=== PATIENT | female | born 1950 ===

== ENCOUNTER 2017-09-08 01:23 | Inpatient (IN) | payer OTHER ==
--- NOTE | 2017-09-08 01:52 | ED PDOC ---
Arrival/HPI - General Time Seen by Provider: 09/08/17 01:43 Historian: Patient, Family - History of Present Illness Narrative History of Present Illness (Text): 09/08/17 01:49 Alecia Mcdaniels is a 66 year old female, whose past medical history includes GERD , PUD, and SBO, who presented to the Emergency department accompanied by relative complaining of abdominal pain. Patient states she has began experiencing diffuse abdominal pain at 19:00 yesterday, which has been gradually worsening since then. Patient states she ate steak and potato salad prior to onset of symptoms. Patient also reports she has been experiencing intermittent bright red rectal bleeding. Patient states she was supposed to go for a colonoscopy, but has been unable to go due to the rectal bleeding. Patient denies any fever, chills, vomiting, diarrhea, urinary symptoms, back pain, neck pain, headache, dizziness, or any other complaints. Symptom Onset: Gradual Symptom Course: Unchanged Activities at Onset: Light Context: Home Past Medical History - Provider Review Nursing Documentation Reviewed: Yes - Infectious Disease Hx of Infectious Diseases: None - Cardiac Hx Cardiac Disorders: No - Pulmonary Hx Respiratory Disorders: No - Neurological Hx Neurological Disorder: No - HEENT Hx HEENT Disorder: No - Renal Hx Renal Disorder: No - Endocrine/Metabolic Hx Endocrine Disorders: No - Hematological/Oncological Hx Blood Transfusions: (UNKNOWN) Hx Blood Transfusion Reaction: (UNKNOWN) - Integumentary Hx Dermatological Disorder: No - Musculoskeletal/Rheumatological Hx Musculoskeletal Disorders: No Hx Falls: No - Gastrointestinal Hx Gastrointestinal Disorders: Yes Hx Diverticulitis: Yes Hx Gastroesophageal Reflux: Yes Other/Comment: SBO,POLYPS REMOVED ,HEMORRHOID,RECTAL PROLAPSE REPAIR - Genitourinary/Gynecological Hx Genitourinary Disorders: Yes Hx Urinary Tract Infection: Yes Other/Comment: KILO/BSO,C SECTION, - Psychiatric Hx Psychophysiologic Disorder: No Hx Depression: No Hx Emotional Abuse: No Hx Physical Abuse: No Hx Substance Use: No - Surgical History Hx Hysterectomy: Yes - Anesthesia Hx Anesthesia Reactions: No Hx Malignant Hyperthermia: No - Suicidal Assessment Feels Threatened In Home Enviroment: No Family/Social History - Physician Review Nursing Documentation Reviewed: Yes Family/Social History: Unknown Family HX Smoking Status: Never Smoked Hx Alcohol Use: No Hx Substance Use: No Allergies/Home Meds Allergies/Adverse Reactions: Allergies No Known Allergies Allergy (Verified 09/08/17 02:15) Home Medications: Home Meds Medication Instructions Recorded Confirmed No Known Home Med 09/08/17 09/08/17 Review of Systems - Physician Review All systems were reviewed & negative as marked: Yes - Review of Systems Constitutional: Normal. absent: Fevers Eyes: Normal ENT: Normal Respiratory: Normal. absent: SOB, Cough Cardiovascular: Normal. absent: Chest Pain Gastrointestinal: Abdominal Pain, Hematochezia. absent: Diarrhea, Vomiting Genitourinary Female: Normal. absent: Dysuria, Frequency, Hematuria, Urine Output Changes Musculoskeletal: Normal. absent: Back Pain, Neck Pain Skin: Normal. absent: Rash Neurological: Normal. absent: Headache, Dizziness Endocrine: Normal Hemo/Lymphatic: Normal Psychiatric: Normal Physical Exam Vital Signs Reviewed: Yes Vital Signs Temp Pulse Resp BP Pulse Ox 09/08/17 04:27 81 18 137/74 97 09/08/17 01:59 98.1 F 79 18 183/107 H 97 Temperature: Afebrile Pulse: Regular Respiratory Rate: Normal Appearance: Positive for: Well-Appearing, Non-Toxic, Comfortable Pain Distress: None Mental Status: Positive for: Alert and Oriented X 3 - Systems Exam Head: Present: Atraumatic, Normocephalic Pupils: Present: PERRL Extroacular Muscles: Present: EOMI Conjunctiva: Present: Normal Mouth: Present: Moist Mucous Membranes Neck: Present: Normal Range of Motion Respiratory/Chest: Present: Clear to Auscultation, Good Air Exchange. No: Respiratory Distress, Accessory Muscle Use Cardiovascular: Present: Regular Rate and Rhythm, Normal S1, S2. No: Murmurs Abdomen: Present: Tenderness (Mild diffuse tenderness), Normal Bowel Sounds. No : Distention, Peritoneal Signs Rectal: Present: Normal Rectal Tone, Other (Scanty bright red blood, no active bleeding, Guaiac positive). No: Rectal Tenderness, Gross Blood, Hemorrhoids, Fissures, Nodule/Mass/Lesions Back: Present: Normal Inspection Upper Extremity: Present: Normal Inspection. No: Cyanosis, Edema Lower Extremity: Present: Normal Inspection. No: Edema Neurological: Present: GCS=15, CN II-XII Intact, Speech Normal Skin: Present: Warm, Dry, Normal Color. No: Rashes Psychiatric: Present: Alert, Oriented x 3, Normal Insight, Normal Concentration Medical Decision Making ED Course and Treatment: 09/08/17 01:49 Impression: 66 year old female complaining of diffuse abdominal pain and rectal bleeding. Plan: -- CT Abdomen and Pelvis with IV contrast -- EKG -- Labs, lipase -- Urinalysis -- IV fluids -- Zofran -- Pepcid -- Morphine -- Reassess and disposition Prior Visits: Notes and results from previous visits were reviewed. On 10/03/2016, pt was seen in the Emergency department for abdomial pain, nausea , vomiting, and diarrhea. Pt was admitted to the hospital for further evaluation. Progress Notes: Reviewed EKG, NSR at [address] bpm[address] Non-specific ST/T wave changes. 09/08/17 04:57 CT Abdomen and Pelvis shows: LOWER THORAX: No infiltrate seen in the lung bases. ABDOMEN: LIVER: Fatty infiltration of the liver. GALLBLADDER AND BILE DUCTS: No CT evidence of acute cholecystitis. No evidence of significant biliary ductal dilatation. PANCREAS: No CT evidence of acute pancreatitis. SPLEEN: No acute abnormality of the spleen identified. ADRENALS: No acute abnormality of the adrenal glands identified. KIDNEYS AND URETERS: No acute abnormality of the kidneys identified. No evidence of significant hydrouereteronephrosis. STOMACH AND BOWEL: Small bowel dilatation, a new finding since the prior CT. There are multiple fluid-filled and mildly dilated small bowel loops seen, greatest in the mid small bowel. There is no single, abrupt transition point seen in the small bowel. There appear to be fluid-filled and dilated small bowel loops interposed between the decompressed small bowel loops. No evidence of diffuse small bowel dilatation. No evidence of diffuse decompression of the distal small bowel or colon. Findings could be due to either an ileus or a partial small bowel obstruction, such as secondary to adhesions. Colonic diverticulosis, with no evidence of acute diverticulitis. Retained stool noted throughout the colon, with no evidence of a significant large bowel obstruction or fecal impaction. Surgical clip again seen in the stomach, which may be related to prior biopsy. Otherwise, no significant abnormality of the bowel is identified. No evidence of diffuse colitis/pancolitis. APPENDIX: Appendix is seen, and is within normal limits in appearance. PELVIS: BLADDER: No acute abnormality of the bladder identified. REPRODUCTIVE: Uterus is surgically absent. No evidence of large adnexal masses. ABDOMEN and PELVIS: INTRAPERITONEAL SPACE: No evidence of free intraperitoneal air or fluid. BONES/JOINTS: Mild anterior subluxation of L4 over L5, stable in appearance, most likely degenerative in etiology. There are marked facet joint degenerative changes at this level. SOFT TISSUES: No acute abnormality of the visualized soft tissues is seen. VASCULATURE: No evidence of abdominal aortic aneurysm. No evidence of periaortic hemorrhage. LYMPH NODES: No evidence of diffuse lymphadenopathy. IMPRESSION: - Small bowel dilatation, which could be secondary to a partial small bowel obstruction versus an ileus of the small bowel. Please see above for a full description. - Otherwise, no evidence of significant acute process. - See above for remaining findings. 09/08/17 05:[address] Gordon, who is aware and agrees with plan. Accepts pt in her service. Pt will go to [facility] [place] observation for partial small bowel obstruction and abdominal pain. Requests Dr. Lynn and Dr. Redmond. - Lab Interpretations Lab Results: 09/08/17 02:23 09/08/17 02:23 Lab Results 09/08/17 02:23: WBC 8.8 D, RBC 4.62, Hgb 13.8, Hct 40.5, MCV 87.7, MCH 29.9, MCHC 34.1, RDW 14.1, Plt Count 288, MPV 10.0 09/08/17 02:23: Sodium 146, Potassium 3.9, Chloride 108 H, Carbon Dioxide 25, Anion Gap 17, BUN 14, Creatinine 0.7, Est GFR ( Amer) > 60, Est GFR (Non- Af Amer) > 60, Random Glucose 129 H, Calcium 9.6, Total Bilirubin 0.2, AST 32, ALT 31, Alkaline Phosphatase 109, Total Protein 7.9, Albumin 4.4, Globulin 3.5, Albumin/Globulin Ratio 1.3, Lipase 47 I have reviewed the lab results: Yes - RAD Interpretation Radiology Orders: 09/08/17 02:03 ABD & PELVIS IV CONTRAST ONLY [CT] 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 - EKG Interpretation Interpreted by ED Physician: Yes Type: 12 lead EKG - Medication Orders Current Medication Orders: Sodium Chloride (Sodium Chloride 0.9%) 1,000 mls @ 100 mls/hr IV .Q10H STA Stop: 09/08/17 15:44 Discontinued Medications Famotidine (Pepcid) 20 mg IVP STAT STA Stop: 09/08/17 02:04 Last Admin: 09/08/17 02:33 Dose: 20 mg IVP Administration Document 09/08/17 02:33 R (Rec: 09/08/17 02:33 R [id number]) Charges for Administration # of IVP Administrations 1 Sodium Chloride (Sodium Chloride 0.9%) 1,000 mls @ 999 mls/hr IV .Q1H1M STA Stop: 09/08/17 03:03 Last Admin: 09/08/17 02:33 Dose: 999 mls/hr eMAR Start Stop Document 09/08/17 02:33 R (Rec: 09/08/17 02:34 R [id number]) Intravenous Solution Start Date 09/08/17 Start Time 02:33 Morphine Sulfate (Morphine) 4 mg IVP STAT STA Stop: 09/08/17 02:07 Last Admin: 09/08/17 02:33 Dose: 4 mg MAR Pain Assessment Document 09/08/17 02:33 Zachariah (Rec: 09/08/17 02:33 R [id number]) Pain Reassessment Is this a pain reassessment? No Sleep Is patient sleeping during reassessment? No Presence of Pain Presence of Pain Yes Pain Scale Used Pain Scale Used Numeric Location Pain Location Body Site Abdomen Description Description Acute Intensity of Pain at present 10 Acceptable Level of Pain 0 Pain Behavior Moaning Irritability Restlessness Aggravating Factors ADL's IVP Administration Document 09/08/17 02:33 R (Rec: 09/08/17 02:33 R [id number]) Charges for Administration # of IVP Administrations 1 Ondansetron HCl (Zofran Inj) 4 mg IVP ONCE ONE Stop: 09/08/17 02:04 Last Admin: 09/08/17 02:32 Dose: 4 mg IVP Administration Document 09/08/17 02:32 R (Rec: 09/08/17 02:32 R [id number]) Charges for Administration # of IVP Administrations 1 - Scribe Statement The provider has reviewed the documentation as recorded by the Scribbernadette Plunkett Provider Scribe Attestation: All medical record entries made by the Scribe were at my direction and personally dictated by me. I have reviewed the chart and agree that the record accurately reflects my personal performance of the history, physical exam, medical decision making, and the department course for this patient. I have also personally directed, reviewed, and agree with the discharge instructions and disposition. Disposition/Present on Arrival - Present on Arrival Any Indicators Present on Arrival: No History of DVT/PE: No History of Uncontrolled Diabetes: No Urinary Catheter: No History of Decub. Ulcer: No History Surgical Site Infection Following: None - Disposition Have Diagnosis and Disposition been Completed?: Yes Diagnosis: Abdominal pain Disposition: HOSPITALIZED Disposition Time: 05:51 Patient Plan: Observation Condition: STABLE Referrals: Marivel Biswas, [Primary Care Provider] - Follow up with primary
[2017-09-08 01:59] VITALS: BMI 26.4
[2017-09-08] MEDS ORDERED: Sodium Chloride 0.9% 1,000 ML IV STA ×2 (02:03→05:45)
[2017-09-08] MEDS ORDERED: Morphine 4 mg/ml ISec IVP STA (02:06)
[2017-09-08 02:51] LABS: ALB/GLOB RATIO 1.3 (1.1-1.8); ALBUMIN 4.4 g/dL (3.0-4.8); ALT/SGPT 31 U/L (7-56); AST/SGOT 32 U/L (14-36); BLOOD UREA NITROGEN 14 mg/dL (7-21); CALCIUM 9.6 mg/dL (8.4-10.5); GFR AFRICAN-AMERICAN > 60; GFR NON-AFRICAN AMERICAN > 60; LIPASE 47 U/L (23-300)
[2017-09-08] MEDS ORDERED: Iohexol 350 MG/100 ML VIAL ONE (02:53)
[2017-09-08 02:57] LABS: HEMOGLOBIN 13.8 g/dL (12.0-16.0); MEAN CELL VOLUME 87.7 fl (80.0-105.0); MEAN CORPUSCULAR HEMOGLOBIN 29.9 pg (25.0-35.0); MEAN CORPUSCULAR HGB CONC 34.1 g/dl (31.0-37.0); RBC 4.62 10^6/uL (3.5-6.1); RED CELL DISTRIBUTION WIDTH 14.1 % (11.5-14.5); WHITE BLOOD COUNT 8.8 10^3/ul (4.5-11.0)
--- NOTE | 2017-09-08 04:50 | CT ---
EXAM: CT Abdomen and Pelvis With Intravenous Contrast EXAM DATE/TIME: 09/08/2017 2:03 AM CLINICAL HISTORY: 66 years old, female; Pain; Abdominal pain; Generalized TECHNIQUE: Axial computed tomography images of the abdomen and pelvis with intravenous contrast. All CT scans at this facility use one or more dose reduction techniques, viz.: automated exposure control; ma/kV adjustment per patient size (including targeted exams where dose is matched to indication; i.e. head); or iterative reconstruction technique. Coronal and sagittal reformatted images were created and reviewed. CONTRAST: 96 mL of OMNI 350 administered intravenously. COMPARISON: Prior CT abdomen and pelvis of 2016-10-03 FINDINGS: LOWER THORAX: No infiltrate seen in the lung bases. ABDOMEN: LIVER: Fatty infiltration of the liver. GALLBLADDER AND BILE DUCTS: No CT evidence of acute cholecystitis. No evidence of significant biliary ductal dilatation. PANCREAS: No CT evidence of acute pancreatitis. SPLEEN: No acute abnormality of the spleen identified. ADRENALS: No acute abnormality of the adrenal glands identified. KIDNEYS AND URETERS: No acute abnormality of the kidneys identified. No evidence of significant hydrouereteronephrosis. STOMACH AND BOWEL: Small bowel dilatation, a new finding since the prior CT. There are multiple fluid-filled and mildly dilated small bowel loops seen, greatest in the mid small bowel. There is no single, abrupt transition point seen in the small bowel. There appear to be fluid-filled and dilated small bowel loops interposed between the decompressed small bowel loops. No evidence of diffuse small bowel dilatation. No evidence of diffuse decompression of the distal small bowel or colon. Findings could be due to either an ileus or a partial small bowel obstruction, such as secondary to adhesions. Colonic diverticulosis, with no evidence of acute diverticulitis. Retained stool noted throughout the colon, with no evidence of a significant large bowel obstruction or fecal impaction. Surgical clip again seen in the stomach, which may be related to prior biopsy. Otherwise, no significant abnormality of the bowel is identified. No evidence of diffuse colitis/pancolitis. APPENDIX: Appendix is seen, and is within normal limits in appearance. PELVIS: BLADDER: No acute abnormality of the bladder identified. REPRODUCTIVE: Uterus is surgically absent. No evidence of large adnexal masses. ABDOMEN and PELVIS: INTRAPERITONEAL SPACE: No evidence of free intraperitoneal air or fluid. BONES/JOINTS: Mild anterior subluxation of L4 over L5, stable in appearance, most likely degenerative in etiology. There are marked facet joint degenerative changes at this level. SOFT TISSUES: No acute abnormality of the visualized soft tissues is seen. VASCULATURE: No evidence of abdominal aortic aneurysm. No evidence of periaortic hemorrhage. LYMPH NODES: No evidence of diffuse lymphadenopathy. IMPRESSION: - Small bowel dilatation, which could be secondary to a partial small bowel obstruction versus an ileus of the small bowel. Please see above for a full description. - Otherwise, no evidence of significant acute process. - See above for remaining findings.
[2017-09-08] MEDS ORDERED: Docusate-Senna 50 mg-8.6 mg Tab PO PRN (08:52)
--- NOTE | 2017-09-08 09:05 | CP.PCM.CON ---
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 Patient reports pain began yesterday afternoon. She states pain is localized to her midepigastric region. She mentioned pain began after having meat for dinner. She denies fever/chills, nausea/vomiting, dysuria. Patient states she experienced a bloody bowel movement while in the ED. She also reports anal pruritus following BMs. Patient's last EGD was last year in [place], it was done by Dr. Figueroa. Patient was found to have a gastric tumor which was excised via endoscopy. Last colonoscopy was also last year and she states two polyps were excised. Patient admits to not following up with GI doctor. PMH: SBO, arthritis or back, hemorrhoids, GA ulcer/tumor, diverticulosis as seen on CT, Colon polyp PSH: KILO/BSO, Rectal prolapse repair Social: denies tobacco, alcohol, illicit drugs Review of Systems - Review of Systems Review of Systems: 12pt ROS unremarkable, except as stated in HPI Past Patient History - Infectious Disease Hx of Infectious Diseases: None - Past Social History Smoking Status: Never Smoked - CARDIAC Hx Cardiac Disorders: No - PULMONARY Hx Respiratory Disorders: No - NEUROLOGICAL Hx Neurological Disorder: No - HEENT Hx HEENT Problems: No - RENAL Hx Chronic Kidney Disease: No - ENDOCRINE/METABOLIC Hx Endocrine Disorders: No - HEMATOLOGICAL/ONCOLOGICAL Hx Blood Transfusions: (UNKNOWN) Hx Blood Transfusion Reaction: (UNKNOWN) - INTEGUMENTARY Hx Dermatological Problems: No - MUSCULOSKELETAL/RHEUMATOLOGICAL Hx Musculoskeletal Disorders: No Hx Falls: No - GASTROINTESTINAL Hx Gastrointestinal Disorders: Yes Hx Diverticulitis: Yes Hx Gastroesophageal Reflux: Yes Other/Comment: SBO,POLYPS REMOVED ,HEMORRHOID,RECTAL PROLAPSE REPAIR - GENITOURINARY/GYNECOLOGICAL Hx Genitourinary Disorders: Yes Hx Urinary Tract Infection: Yes Other/Comment: KILO/BSO,C SECTION, - PSYCHIATRIC Hx Psychophysiologic Disorder: No Hx Depression: No Hx Emotional Abuse: No Hx Physical Abuse: No Hx Substance Use: No - SURGICAL HISTORY Hx Hysterectomy: Yes - ANESTHESIA Hx Anesthesia Reactions: No Hx Malignant Hyperthermia: No Meds Allergies/Adverse Reactions: Allergies Allergy/AdvReac Type Severity Reaction Status Date / Time No Known Allergies Allergy Verified 09/08/17 02:15 - Medications Medications: Current Medications Docusate Sodium (Colace) 100 mg PO BID PRN PRN Reason: Constipation Sodium Chloride (Sodium Chloride 0.9%) 1,000 mls @ 100 mls/hr IV .Q10H STA Stop: 09/08/17 15:44 Last Admin: 09/08/17 05:58 Dose: 100 mls/hr Pantoprazole Sodium (Protonix Inj) 40 mg IVP DAILY CHRIS Senna/Docusate Sodium (Senokot S 50 Mg-8.6 Mg) 1 tab PO BID PRN PRN Reason: Constipation Physical Exam - Constitutional Appears: No Acute Distress - Eye Exam Eye Exam: EOMI, Normal appearance - ENT Exam ENT Exam: Mucous Membranes Moist - Respiratory Exam Respiratory Exam: NORMAL BREATHING PATTERN - Cardiovascular Exam Cardiovascular Exam: +S1, +S2 - GI/Abdominal Exam GI & Abdominal Exam: Soft, Tenderness Additional comments: epigastric - Extremities Exam Extremities exam: Positive for: normal inspection - Neurological Exam Neurological exam: Alert, Oriented x3 - Psychiatric Exam Psychiatric exam: Normal Mood - Skin Skin Exam: Dry, Intact, Warm Results - Vital Signs Recent Vital Signs: Last Vital Signs Temp 98.2 F 09/08/17 06:11 Pulse 80 09/08/17 06:11 Resp 18 09/08/17 06:11 BP 127/85 09/08/17 06:11 Pulse Ox 96 09/08/17 06:11 - Labs Result Diagrams: 09/08/17 02:23 09/08/17 02:23 - Imaging and Cardiology CT scan - abdomen Status: Image reviewed by me, Report reviewed by me Assessment & Plan - Assessment and Plan (Free Text) Assessment: 66F w/ history of gastric carcinoid tumor presents with midepigastric pain and CT evidence of duodenitis Plan: NPO IVF Analgesic/Anti-emetic Stool softeners Recommend GI consult Will continue to follow D/w Dr. Ruy Santoro PGY2
[2017-09-08] MEDS ORDERED: Docusate-Senna 50 mg-8.6 mg Tab PO SCH (10:00)
[2017-09-08] MEDS ORDERED: Propofol 10 mg/ml Inj (20 ML) ONE (14:39)
[2017-09-08] MEDS ORDERED: Sodium Chloride 0.9% 1,000 ML IV SCH ×2 (15:45→16:00)
[2017-09-08] MEDS ORDERED: Potassium Ch 20mEq in D5-1/2NS 1,000 ML IV SCH (15:45)
[2017-09-08] MEDS ORDERED: Influenza Vaccine 60 mcg/0.5 mL SYR (4YR UP) IM ONE (18:40)
[2017-09-08] MEDS: Potassium Ch 20mEq in D5-1/2NS 1,000 ML IV SCH (19:02)
--- NOTE | 2017-09-08 23:58 | CARD ---
APPROVED REPORT EKG Measurement Heart [id number] MA [id number] <Conclusion> Normal sinus rhythm Minimal voltage criteria for LVH, may be normal variant Possible Anterior infarct, age undetermined Abnormal ECG
--- NOTE | 2017-09-09 01:09 | CON ---
DATE: HISTORY OF PRESENT ILLNESS: Alecia Mcdaniels is seen on the floor status post endoscopy and an EMR done at [facility] done about a year ago, without followup. Patient admitted now with a CAT scan read as showing there is a partial small bowel obstruction. The stomach has had normal thickness in the wall of the stomach, which may or may not be significant, has also very full stomach. Recommend endoscopy and followup as necessary. I do not think this is small bowel obstruction. The abdomen is soft, nontender. Wm Redmond MD
[2017-09-09] MEDS: Potassium Ch 20mEq in D5-1/2NS 1,000 ML IV SCH ×3 (04:57→19:27)
--- NOTE | 2017-09-09 06:54 | CON ---
DATE: 09/08/2017 HISTORY OF PRESENT ILLNESS: This is a 66-year-old patient with a carcinoid of the gastric body, status post endoscopic mucosal resection done a year ago. Presented with abdominal pain, worsening for nearly from yesterday afternoon. The pain was like the cramping pain, started off in the midepigastric area. The patient has intermittent episodes of abdominal pain the last few weeks, but suddenly it got worsened and came to the emergency room. She has a history of the carcinoid tumor of the gastric body resected by endoscopic resection. The patient had 2 clips placed post resection. She also had a colonoscopy last year and found to have 2 polyps removed. The patient was hospitalized about a year ago and she was told to follow up with [facility] finish opener as per her wish. I also spoke with the [facility] finish opener in [place]. The patient did not follow up since her last discharge. She was doing well until this episode. PAST MEDICAL HISTORY: Other past medical history significant for small bowel obstruction, arthritis, diverticulosis. PAST SURGICAL HISTORY: Significant for total hysterectomy. SOCIAL HISTORY: She denies smoking. No alcohol use. REVIEW OF SYSTEMS: Positive as above. Other systems reviewed negative. FAMILY HISTORY: Noncontributory. PHYSICAL EXAMINATION: GENERAL: The patient is lying on the bed, not in any acute distress. VITAL SIGNS: Pulse 66, blood pressure 157/83, respirations 18, O2 saturation is 96%. HEENT: Atraumatic, anicteric. NECK: Supple. HEART: S1 and S2 heard. LUNGS: Bilateral air entry present. ABDOMEN: Soft. There is tenderness present in the periumbilical and also epigastric area. No rebound or guarding. EXTREMITIES: No cyanosis. No clubbing. NEUROLOGICAL: Alert, oriented. Moves all the extremities. LABORATORY DATA: Hemoglobin 13.8, hematocrit 40.5, WBC is 8.8, platelets 288. Chemistry is essentially unremarkable except for glucose level of 129. CT scan of the abdomen and pelvis done, which was reviewed, which shows small bowel dilation and which could be secondary to the partial small bowel obstruction. Multiple loops of small bowel distention noticed. There is also gastric wall focal thickening noticed at the site of the clip. IMPRESSION: This is a 66-year-old patient with a history of gastric carcinoid, status post endoscopic mucosal resection. Admitted with abdominal pain. CAT scan shows multiple distended loops of the bowel. Rule out partial obstruction. The patient has a history of , adhesion versus carcinoid tumor to be considered. There is some focal thickening of the stomach at the site of the clip noticed. RECOMMENDATION: Would recommend; 1. . 2. Endoscopic ultrasound to evaluate the clip site. 3. EUS to evaluate the site of the stomach of focal thickening area. 4. Octreotide scan. 5. Abdominal x-ray if the small bowel distention is still present consider small bowel series. The patient would clearly benefit from MR enterography or CT enterography to further evaluate and also consider further evaluation including capsule study. This was explained to the patient at length ever before. The patient is advised to follow up with the primary doctor. Thank you very much for allowing us to participate in the care of the patient. Zhanna Lynn MD
--- NOTE | 2017-09-09 10:48 | CP.PCM.PN ---
Subjective - Date & Time of Evaluation Date of Evaluation: 09/09/17 Time of Evaluation: 07:30 - Subjective Subjective: Patient seen and examined. No acute events over night. Reports feeling slightly better. Denies n/v, abdominal pain. Objective - Vital Signs/Intake and Output Vital Signs (last 24 hours): Temp Pulse Resp BP Pulse Ox 98.3 F 67 18 126/76 96 09/09/17 07:30 09/09/17 07:30 09/09/17 07:30 09/09/17 07:30 09/09/17 07:30 Intake and Output: 09/09/17 09/09/17 06:59 18:59 Intake Total 420 Balance 420 - Medications Medications: Current Medications Docusate Sodium (Colace) 100 mg PO BID PRN PRN Reason: Constipation Last Admin: 09/09/17 09:25 Dose: 100 mg Potassium Chloride/Dextrose/Sod Cl (Potassium Chl 20 Meq In D5-1/2ns) 1,000 mls @ 100 mls/hr IV .Q10H [facility] Last Admin: 09/09/17 04:57 Dose: 100 mls/hr Pantoprazole Sodium (Protonix Inj) 40 mg IVP DAILY [facility] Last Admin: 09/09/17 09:24 Dose: 40 mg Senna/Docusate Sodium (Senokot S 50 Mg-8.6 Mg) 1 tab PO BID PRN PRN Reason: Constipation - Constitutional Appears: No Acute Distress - Head Exam Head Exam: NORMOCEPHALIC - Eye Exam Eye Exam: Normal appearance - ENT Exam ENT Exam: Mucous Membranes Moist - Respiratory Exam Respiratory Exam: NORMAL BREATHING PATTERN - Cardiovascular Exam Cardiovascular Exam: +S1, +S2 - GI/Abdominal Exam GI & Abdominal Exam: Soft. absent: Tenderness - Neurological Exam Neurological Exam: Alert, Awake, Oriented x3 - Psychiatric Exam Psychiatric exam: Normal Mood - Skin Skin Exam: Intact, Normal Color, Warm Assessment and Plan - Assessment and Plan (Free Text) Assessment: 66F w/ focal gastric wall thickening and duodenitis -F/u gastric biopsies -F/u octreotide scan -F/u EUS -D/w Dr. Ruy Santoro PGY2
[2017-09-09] MEDS ORDERED: Midazolam 2 MG/2 ML VIAL ONE (15:59)
[2017-09-09] MEDS ORDERED: Propofol 10 mg/ml Inj (20 ML) ONE ×3 (16:02→16:58)
[2017-09-09] MEDS ORDERED: Sodium Chloride 0.9% 1,000 ML IV SCH (17:45)
[2017-09-09] MEDS ORDERED: Magnesium Citrate Oral SOL (300 ml) PO ONE (19:52)
[2017-09-09 20:29] LABS: BASO # 0.03 K/mm3 (0.0-2.0); BASO % 0.6 % (0.0-3.0); EOS # 0.3 (0.0-0.7); EOS % 4.8 % (1.5-5.0); GRAN # 2.63 (1.4-6.5); GRAN % 48.7 % (50.0-68.0); HEMOGLOBIN 13.5 g/dL (12.0-16.0); LYMPH # 2.2 (1.2-3.4); LYMPH % 40.2 % (22.0-35.0); MEAN CELL VOLUME 87.9 fl (80.0-105.0); MEAN CORPUSCULAR HEMOGLOBIN 29.7 pg (25.0-35.0); MEAN CORPUSCULAR HGB CONC 33.8 g/dl (31.0-37.0); MEAN PLATELET VOLUME 9.4 fl (7.0-11.0); MONO # 0.3 (0.1-0.6); MONO % 5.7 % (1.0-6.0); RBC 4.55 10^6/uL (3.5-6.1); RED CELL DISTRIBUTION WIDTH 13.9 % (11.5-14.5); WHITE BLOOD COUNT 5.4 10^3/ul (4.5-11.0)
[2017-09-09 20:46] LABS: BLOOD UREA NITROGEN 8 mg/dL (7-21); CALCIUM 9.7 mg/dL (8.4-10.5); GFR AFRICAN-AMERICAN > 60; GFR NON-AFRICAN AMERICAN > 60
[2017-09-09 20:50] LABS: TROPONIN I < 0.01 ng/mL
--- NOTE | 2017-09-09 21:03 | CP.PCM.PN ---
Subjective - Date & Time of Evaluation Date of Evaluation: 09/09/17 Time of Evaluation: 19:45 - Subjective Subjective: Pt seen stat at the request of her RN for c/o chest pain.Help of her relative, who is by her bedside obtained for translation. Patient states she has had this chest pain before,it is not new.She describes the pain as a mild pain located on the L side of the chest,going to the back.On a scale of 1 to 10 it was a 5,it is better now The pain comes and goes.It is not associated with any other symptoms like nausea,vomiting,SOB. Pt had EUS today. VS are stable PMH: Arthritis,Gerd,PUD. Objective - Vital Signs/Intake and Output Vital Signs (last 24 hours): Temp Pulse Resp BP Pulse Ox 97.9 F 65 18 148/84 95 09/09/17 19:35 09/09/17 19:35 09/09/17 19:35 09/09/17 19:35 09/09/17 19:35 Intake and Output: 09/09/17 09/10/17 18:59 06:59 Intake Total 0 Balance 0 - Medications Medications: Current Medications Acetaminophen (Tylenol 325mg Tab) 650 mg PO Q6H PRN PRN Reason: Pain, moderate (4-7) Last Admin: 09/09/17 20:04 Dose: 650 mg Docusate Sodium (Colace) 100 mg PO BID PRN PRN Reason: Constipation Last Admin: 09/09/17 09:25 Dose: 100 mg Potassium Chloride/Dextrose/Sod Cl (Potassium Chl 20 Meq In D5-1/2ns) 1,000 mls @ 100 mls/hr IV .Q10H [facility] Last Admin: 09/09/17 19:27 Dose: 100 mls/hr Sodium Chloride (Sodium Chloride 0.9%) 1,000 mls @ 100 mls/hr IV .Q10H [facility] Metoprolol Tartrate (Lopressor) 12.5 mg PO BID [facility] Pantoprazole Sodium (Protonix Inj) 40 mg IVP DAILY [facility] Last Admin: 09/09/17 09:24 Dose: 40 mg Senna/Docusate Sodium (Senokot S 50 Mg-8.6 Mg) 1 tab PO BID PRN PRN Reason: Constipation - Constitutional Appears: No Acute Distress - Head Exam Head Exam: ATRAUMATIC, NORMAL INSPECTION, NORMOCEPHALIC - Eye Exam Eye Exam: PERRL - ENT Exam ENT Exam: Mucous Membranes Moist - Neck Exam Neck Exam: Normal Inspection - Respiratory Exam Respiratory Exam: Clear to Ausculation Bilateral, NORMAL BREATHING PATTERN - Cardiovascular Exam Cardiovascular Exam: REGULAR RHYTHM - GI/Abdominal Exam GI & Abdominal Exam: Soft, Normal Bowel Sounds. absent: Distended - Extremities Exam Extremities Exam: Normal Inspection. absent: Calf Tenderness, Pedal Edema - Neurological Exam Neurological Exam: Alert, Oriented x3 - Psychiatric Exam Psychiatric exam: Normal Affect - Skin Skin Exam: Dry, Normal Color, Warm Assessment and Plan - Assessment and Plan (Free Text) Assessment: Chest pain Plan: EKG was done stat.It shows NSR,septal infarct ,age undetermined.No change from before. CXray portable was done stat,no sub diaphragmatic or mediastinal air noted. CBC,BMP,Troponin 1 ordered stat,then Troponin Q 8 h x [address] Galvan.Aspirin 81 mg po ordered stat.Also ordered Metoprolol 12.5 mg stat ,then BID.Consult requested with Dr Go.
[2017-09-09] MEDS ORDERED: Sodium Chloride 0.9% 1,000 ML IV ONE (21:16)
--- NOTE | 2017-09-09 21:28 | RAD ---
EXAM: XR Chest, 1 View CLINICAL HISTORY: 66 years old, female; Pain; Chest pain; Additional info: C/O chest pain TECHNIQUE: Frontal view of the chest. COMPARISON: DX - CHEST PORTABLE 2016-10-03 11:20 FINDINGS: Limitations: Suboptimal positioning. Lungs: No consolidation. Pleural space: No pleural effusion. No pneumothorax. Heart: No cardiomegaly. Mediastinum: Unremarkable. Bones/joints: No acute fracture. IMPRESSION: 1. No definite acute cardiopulmonary disease.
--- NOTE | 2017-09-09 21:31 | HP ---
DATE OF EXAM: 09/08/2017 HISTORY OF PRESENT ILLNESS: Ms. Alston is a 66-year-old female with past history of GERD, peptic ulcer disease and small bowel obstruction, presented to ED with abdominal pain. CAT scan of the abdomen was consistent with small bowel obstruction. She has history of gastric carcinoid resected submucosally through EGD by Dr. Wilkerson last year. She also stated that she has rectal bleeding off and on for past 1 month. Denies any nausea, vomiting. No shortness of breath. PAST MEDICAL HISTORY: Diverticulitis, GE reflux, carcinoid resection. Urinary tract infection. PAST SURGICAL HISTORY: Carcinoid removed from the stomach, submucosal lesion, hemorrhoids, rectal bleeding, small bowel obstruction, colonic polyp removed last year. PERSONAL HISTORY: Never smoked. No history of alcohol abuse. SOCIAL HISTORY: Lives at home. ALLERGIES: NO KNOWN DRUG ALLERGIES. HOME MEDICATION: None. REVIEW OF SYSTEMS: As per HPI. Rest of 12-point review of systems reviewed negative. PHYSICAL EXAMINATION: GENERAL: Comfortable in bed, in no acute distress. VITAL SIGNS: Temperature 98.7, heart rate is 79 per minute, respiratory rate 18 per minute, blood pressure 137/74, pulse ox is 97% on room air. HEENT: Pallor positive. NECK: No lymphadenopathy. CHEST: Air entry present and equal bilaterally. No added sounds. CARDIOVASCULAR: S1 and S2 normal. No murmur. No gallop. ABDOMEN: Soft, nontender, nondistended. No rebound tenderness. EXTREMITIES: No edema. SPINE: Nontender. SKIN: No petechiae. No rash. LABORATORY DATA: White count 8.8, hemoglobin 13.8, hematocrit 40.5, platelet count 288. Sodium 146, potassium 3.9, chloride 108, BUN 14, creatinine 0.7, glucose 129. Imaging as per HPI. Chest x-ray, no infiltrate. ASSESSMENT: 1. Small bowel obstruction. 2. History of carcinoid removed from the stomach. 3. Rectal bleeding. 4. History of diverticulitis. 5. History of peptic ulcer disease. PLAN: She will be admitted to Med-Surg. GI consultation, Dr. Lynn requested. Consult appreciated. She will be taken for EGD tomorrow. Surgery consultation, Dr. Redmond requested. N.p.o. IV fluid at 80 mL an hour. Protonix 40 mg IV daily. Blood work ordered for the morning. Kae Galvan MD
--- NOTE | 2017-09-09 21:48 | PN ---
DATE: 09/09/2017 SUBJECTIVE: She is comfortable in bed, in no acute distress, and underwent EGD today. It did not show any lesions in the stomach. She tolerated the procedure well. The house staff informed that she developed chest pain at 8:30 in the evening. She has history of similar chest pain in the past. Stat troponin was drawn negative. Aspirin 81 mg was given stat. She was started on metoprolol 12.5 mg p.o. b.i.d. No prior cardiac history. No bleeding during the hospitalization per rectum. She is tolerating liquid diet well. REVIEW OF SYSTEMS: As per HPI. Rest of 12 point review of systems reviewed and negative. PHYSICAL EXAMINATION: GENERAL: Comfortable in bed not, in no acute distress. VITAL SIGNS: Blood pressure 148/84, temperature 98.7, heart rate is 65 per minute, respiratory rate 18 per minute, oxygen saturation 95% On room air. HEENT: Pallor positive. NECK: No lymphadenopathy. CHEST: Air entry present and equal bilaterally. No added sounds. CARDIOVASCULAR: S1, S2 normal. No murmur, no gallop. ABDOMEN: Soft, nontender. No hepatosplenomegaly. EXTREMITIES: No edema. Spine nontender. SKIN: No petechiae. No rash. LABORATORY DATA: Sodium 143, potassium 4.3, creatinine 0.6, troponin 0.01. White count 5.4, hemoglobin 13.5, hematocrit 40, platelet count 249. ASSESSMENT: 1. History of carcinoid in the stomach. 2. Small bowel obstruction. 3. Rectal bleeding. 4. New onset chest pain - noncardiac. PLAN: Cardiology consultation with Dr. Go requested. She was planned to have colonoscopy tomorrow but that was canceled due to new onset chest pain. We will observe her during hospitalization. Tolerating liquid diet well. If she remained stable, we will reconsider colonoscopy, maybe Friday. Metoprolol 12.5 mg p.o. b.i.d. started. Chromogranin A ordered because of prior history of carcinoid.. No active bleeding during the hospitalization. Iron studies ordered for evaluation of iron status due to chronic GI bleeding. We will continue IV fluid at 80 mL an hour, Protonix IV 40 mg daily. Kae Galvan MD [facility] # [id number]
[2017-09-09 21:59] LABS: PH,URINE 6.5 (4.7-8.0); URINE BILIRUBIN NEGATIVE (NEGATIVE); URINE BLOOD NEGATIVE (NEGATIVE); URINE GLUCOSE (UA) NEGATIVE (NEGATIVE); URINE LEUKOCYTE ESTERASE SMALL Leu/uL (NEGATIVE); URINE PROTEIN NEGATIVE mg/dL (<30 mg/dL); URINE UROBILINOGEN 0.2 E.U./dL (<1 E.U./dL)
[2017-09-09 22:03] LABS: URINE APPEARANCE SL CLOUDY (CLEAR); URINE COLOR YELLOW (YELLOW)
[2017-09-09 22:04] LABS: URINE BACTERIA MANY (NEG); URINE RBC NEGATIVE /hpf (0-2)
[2017-09-10 04:24] LABS: HEMOGLOBIN 12.9 g/dL (12.0-16.0); MEAN CELL VOLUME 87.2 fl (80.0-105.0); MEAN CORPUSCULAR HEMOGLOBIN 29.6 pg (25.0-35.0); MEAN CORPUSCULAR HGB CONC 33.9 g/dl (31.0-37.0); MEAN PLATELET VOLUME 9.5 fl (7.0-11.0); RBC 4.36 10^6/uL (3.5-6.1); RED CELL DISTRIBUTION WIDTH 13.8 % (11.5-14.5); WHITE BLOOD COUNT 4.8 10^3/ul (4.5-11.0)
[2017-09-10 04:29] LABS: IRON 63 ug/dL (45-180)
[2017-09-10 04:39] LABS: % IRON SATURATION 19 % (20-55); TOTAL IRON BINDING CAPACITY 324 ug/dL (265-497)
[2017-09-10 04:44] LABS: TROPONIN I < 0.01 ng/mL
[2017-09-10 05:13] LABS: ALB/GLOB RATIO 1.2 (1.1-1.8); ALBUMIN 3.7 g/dL (3.0-4.8); ALT/SGPT 34 U/L (7-56); AST/SGOT 39 U/L (14-36); BLOOD UREA NITROGEN 9 mg/dL (7-21); CALCIUM 9.4 mg/dL (8.4-10.5); GFR AFRICAN-AMERICAN > 60; GFR NON-AFRICAN AMERICAN > 60
--- NOTE | 2017-09-10 10:49 | PN ---
DATE: 09/10/2017 SUBJECTIVE: The patient has no complaints of any chest pain. No shortness of breath. No headaches. She says her pain is better controlled. She is able to tolerate her liquid diet. PHYSICAL EXAMINATION: VITAL SIGNS: Temperature is 97.4, pulse is 60, blood pressure is 127/76, respirations 20. GENERAL: The patient is lying in bed, flat, comfortable. HEENT: No oral lesion. Anicteric sclerae. Moist mucosa. NECK: No JVD, adenopathy, or thyromegaly. CARDIOVASCULAR: S1 and S2, regular. No murmurs, rubs, or gallops. LUNGS: Clear to auscultation bilaterally. No wheeze, rales, or rhonchi. ABDOMEN: Bowel sounds are positive, soft, nontender and nondistended. EXTREMITIES: No cyanosis, clubbing or edema. LABORATORY DATA: White count is 4.8, hemoglobin 12.9, creatinine 0.6. ASSESSMENT: 1. Small bowel obstruction. 2. History of carcinoid in the stomach. 3. Rectal bleeding. PLAN: The patient is currently comfortable. The patient is on aspirin. She is going to continue with IV fluids. I will decrease the patient's IV fluids. She is on liquid diet. The patient is on Colace. She is receiving Tylenol as needed. We will await further input from Surgery with Dr. Redmond regarding the patient's discharge. We will most likely need to advance her diet prior to discharge. Wilian Leblanc MD
--- NOTE | 2017-09-10 12:18 | CP.PCM.PN ---
Subjective - Date & Time of Evaluation Date of Evaluation: 09/10/17 Time of Evaluation: 12:16 - Subjective Subjective: Surgery: Dr. Redmond Patient doing well. Pain resolved. On CLD. tolerating. Objective - Vital Signs/Intake and Output Vital Signs (last 24 hours): Temp Pulse Resp BP Pulse Ox 97.4 F L 60 20 127/76 94 L 09/10/17 07:30 09/10/17 10:22 09/10/17 07:30 09/10/17 10:22 09/10/17 07:30 Intake and Output: 09/10/17 09/10/17 06:59 18:59 Intake Total 480 Balance 480 - Medications Medications: Current Medications Acetaminophen (Tylenol 325mg Tab) 650 mg PO Q6H PRN PRN Reason: Pain, moderate (4-7) Last Admin: 09/09/17 20:04 Dose: 650 mg Docusate Sodium (Colace) 100 mg PO BID PRN PRN Reason: Constipation Last Admin: 09/09/17 09:25 Dose: 100 mg Sodium Chloride (Sodium Chloride 0.9%) 1,000 mls @ 60 mls/hr IV .[id number] ONE Stop: 09/10/17 13:55 Last Admin: 09/09/17 21:59 Dose: 60 mls/hr Metoprolol Tartrate (Lopressor) 12.5 mg PO BID [facility] Last Admin: 09/10/17 10:22 Dose: 12.5 mg Pantoprazole Sodium (Protonix Inj) 40 mg IVP DAILY [facility] Last Admin: 09/10/17 10:25 Dose: 40 mg Senna/Docusate Sodium (Senokot S 50 Mg-8.6 Mg) 1 tab PO BID PRN PRN Reason: Constipation - Labs Labs: 09/10/17 04:00 09/10/17 04:00 - Constitutional Appears: Non-toxic, No Acute Distress - Head Exam Head Exam: ATRAUMATIC, NORMOCEPHALIC - Eye Exam Eye Exam: EOMI, Normal appearance - ENT Exam ENT Exam: Mucous Membranes Moist - Respiratory Exam Respiratory Exam: NORMAL BREATHING PATTERN. absent: Respiratory Distress - Cardiovascular Exam Cardiovascular Exam: REGULAR RHYTHM. absent: Tachycardia - GI/Abdominal Exam GI & Abdominal Exam: Soft. absent: Distended, Tenderness, Rebound Assessment and Plan - Assessment and Plan (Free Text) Assessment: 66 y/o female with abdominal pain, resolved Plan: -ADAT -f/u biopsies from EGD -cont further GI work up -if tolerates diet w/o sign of obstruction no surgical intervention required -further recs per Dr. Ruy Eason PGY3
[2017-09-10 12:48] LABS: FERRITIN 31.6 ng/mL
--- NOTE | 2017-09-10 12:56 | CP.PCM.PN ---
<Esther Villa - Last Filed: 09/10/17 12:55> Subjective - Date & Time of Evaluation Date of Evaluation: 09/10/17 Time of Evaluation: 10:15 - Subjective Subjective: Seen and examined at the bedside earlier today, chart reviewed,patient had EGD EUS yesterday and on endoscopy found to have gastritis, normal duodenum, Endo Clip was found in the gastric body. No pathology obtained. EUS was done and Endo Clip produced artifact evaluation of the stomach was limited, no celiac adenopathy. The patient today denies nausea, vomiting, shortness of breath or chest pain. Patient was recommended colonoscopy, patient complained of chest pain last night.started Objective - Vital Signs/Intake and Output Vital Signs (last 24 hours): Temp Pulse Resp BP Pulse Ox 97.4 F L 60 20 127/76 94 L 09/10/17 07:30 09/10/17 10:22 09/10/17 07:30 09/10/17 10:22 09/10/17 07:30 Intake and Output: 09/10/17 09/10/17 06:59 18:59 Intake Total 480 Balance 480 - Medications Medications: Current Medications Acetaminophen (Tylenol 325mg Tab) 650 mg PO Q6H PRN PRN Reason: Pain, moderate (4-7) Last Admin: 09/09/17 20:04 Dose: 650 mg Docusate Sodium (Colace) 100 mg PO BID PRN PRN Reason: Constipation Last Admin: 09/09/17 09:25 Dose: 100 mg Sodium Chloride (Sodium Chloride 0.9%) 1,000 mls @ 60 mls/hr IV .[id number] [facility] Stop: 09/10/17 13:55 Last Admin: 09/09/17 21:59 Dose: 60 mls/hr Metoprolol Tartrate (Lopressor) 12.5 mg PO BID [facility] Last Admin: 09/10/17 10:22 Dose: 12.5 mg Pantoprazole Sodium (Protonix Inj) 40 mg IVP DAILY [facility] Last Admin: 09/10/17 10:25 Dose: 40 mg Senna/Docusate Sodium (Senokot S 50 Mg-8.6 Mg) 1 tab PO BID PRN PRN Reason: Constipation - Labs Labs: 09/10/17 04:00 09/10/17 04:00 - Constitutional Appears: No Acute Distress - Head Exam Head Exam: NORMOCEPHALIC - Eye Exam Eye Exam: Normal appearance. absent: Scleral icterus - ENT Exam ENT Exam: Mucous Membranes Moist - Respiratory Exam Respiratory Exam: NORMAL BREATHING PATTERN. absent: Respiratory Distress - Cardiovascular Exam Cardiovascular Exam: +S1, +S2 - GI/Abdominal Exam GI & Abdominal Exam: Soft, Normal Bowel Sounds. absent: Tenderness - Extremities Exam Extremities Exam: Normal Capillary Refill. absent: Calf Tenderness, Pedal Edema - Neurological Exam Neurological Exam: Alert, Awake, Oriented x3 - Skin Skin Exam: Dry, Warm Assessment and Plan - Assessment and Plan (Free Text) Assessment: Assessment: Resolved abdominal pain, SBO Status post EGD EUS found to have gastritis, normal duodenum, Endo Clip found in gastric body., EUS Endo Clip produced artifact evaluation of stomach limited , no celiac adenopathy. History of carcinoid Plan: Follow-up chromogranin A Continue clear liquid for now, spoke to patient's daughter at bedside, explained regarding colonoscopy , they agreed to have colonoscopy done Patient was evaluated by cardiology, spoke to Dr. Gonzalez at bedside patient is cleared for colon Patient would be prepped for colonoscopy on , and by mouth postmidnight for colonoscopy Friday follow-up pathology Continue GI prophylaxis/DVT prophylaxis Seen and discussed with Dr. Lynn. <Zhanna Lynn V - Last Filed: 09/10/17 23:12> Objective - Vital Signs/Intake and Output Vital Signs (last 24 hours): Temp Pulse Resp BP Pulse Ox 97.4 F L 60 20 145/87 94 L 09/10/17 07:30 09/10/17 17:24 09/10/17 07:30 09/10/17 17:24 09/10/17 07:30 Intake and Output: 09/10/17 09/11/17 18:59 06:59 Intake Total 480 720 Balance 480 720 - Medications Medications: Current Medications Acetaminophen (Tylenol 325mg Tab) 650 mg PO Q6H PRN PRN Reason: Pain, moderate (4-7) Last Admin: 09/09/17 20:04 Dose: 650 mg Docusate Sodium (Colace) 100 mg PO BID PRN PRN Reason: Constipation Last Admin: 09/09/17 09:25 Dose: 100 mg Sodium Chloride (Sodium Chloride 0.9%) 1,000 mls @ 60 mls/hr IV .[id number] [facility] Metoprolol Tartrate (Lopressor) 12.5 mg PO BID [facility] Last Admin: 09/10/17 17:24 Dose: 12.5 mg Pantoprazole Sodium (Protonix Inj) 40 mg IVP DAILY [facility] Last Admin: 09/10/17 10:25 Dose: 40 mg Senna/Docusate Sodium (Senokot S 50 Mg-8.6 Mg) 1 tab PO BID PRN PRN Reason: Constipation - Labs Labs: 09/10/17 04:00 09/10/17 04:00 Attending/Attestation - Attestation I have personally seen and examined this patient.: Yes I have fully participated in the care of the patient.: Yes I have reviewed all pertinent clinical information, including history, physical exam and plan: Yes Notes (Text): This is an addendum to GI progress report dictated by Esther Villa APN.The patient was seen and examined earlier. Medical records, lab studies, imagings were reviewed. Last 24 hours events reviewed. Agreed with the above treatment plan as outlined in Esther Villa APN's notes the with the addition of the following 09/10/17 23:12
--- NOTE | 2017-09-10 15:39 | CON ---
DATE: 09/10/2017 LOCATION: The patient in room 565, bed 2. REASON FOR CONSULTATION: Chest pain. HISTORY OF PRESENT ILLNESS: The patient is a 66-year-old female who in the past was treated for GERD, peptic ulcer disease, small bowel obstruction, who was admitted with severe abdominal pain and CAT scan of the abdomen was consistent with small bowel obstruction. The patient gives history that she is getting episodes of sharp pain in the chest off and on, which is not related to exertion, mostly it is from lying down. The patient denies shortness of breath, palpitation. She also has been feeling dizzy today, but she has been on liquid diet. The patient denies any PND. Denies any relation of chest pain to exertion. PAST MEDICAL HISTORY: Positive for carcinoid removed from the stomach, submucosal lesion, hemorrhoid surgery, rectal bleeding, small bowel obstruction, colonic polyp removed. The patient also had hysterectomy. The patient also was treated for diverticulitis and GE reflux, urinary tract infection. PERSONAL HISTORY: Denies smoking. Denies drinking. ALLERGIES: THE PATIENT DENIES ANY ALLERGIES. FAMILY HISTORY: The patient denies any history of family history of medical disease. REVIEW OF SYSTEMS: All other systems reviewed, positives mentioned in the history, others were negative. LIST OF HOME MEDICATIONS: No known home medications. PHYSICAL EXAMINATION: VITAL SIGNS: Blood pressure 127/76, respirations 20, pulse 60, temperature 97.4. HEENT: Head is normocephalic. Eyes: Pupils normal. Conjunctivae normal. Nose and throat normal. NECK: JVP low. Carotids equal. THORAX: AP diameter normal. The patient has no tenderness on the anterior chest wall. LUNGS: Clear. CARDIOVASCULAR: S1 and S2. No rub. No gallop. No click. ABDOMEN: Soft. Bowel sound normal. EXTREMITIES: No clubbing. No cyanosis. LABORATORY DATA: WBC 4.8, hemoglobin 12.9, hematocrit 38.0, platelet 243. Sodium 143, potassium 3.7, BUN 9, creatinine 0.6, glucose 94, troponin x3 negative, AST 39, ALT 34. Total protein, albumin normal. Chest x-ray: Bibasilar atelectasis. No definite acute cardiopulmonary disease. EKG showed regular sinus rhythm. DIAGNOSES: Small bowel obstruction; abdominal pain on admission; chest pain, sharp pain at rest, most likely gastroesophageal reflux disease; history of carcinoid removed from the stomach; history of diverticulitis and peptic ulcer disease; history of rectal bleeding. PLAN: The patient's chest pain is atypical, most likely GE reflux disease; however, I will do an echo and nuclear stress test. The patient also feels dizzy. We will do orthostatic blood pressure. The patient is on metoprolol 12.5 b.i.d., Protonix 40 IV daily. We will continue Protonix. We will continue IV fluid. From cardiac point of view, the patient can go for any GI procedure as moderate risks, but there is no absolute contraindication to go through any GI procedure if needed. We ordered an echo and stress and we will continue to follow with you. Rakesh Gonzalez MD
--- NOTE | 2017-09-10 17:57 | CARD ---
APPROVED REPORT EXAM: Two-dimensional and M-mode echocardiogram with Doppler and color Doppler. INDICATION Chest Pain 2D DIMENSIONS Left Atrium (2D)4.5 (1.6-4.0cm)IVSd1.1 (0.7-1.1cm) LVDd3.7 (3.9-5.9cm)PWd1.0 (0.7-1.1cm) LVDs2.6 (2.5-4.0cm)FS (%) 30.7 % LVEF (%)59.2 (>50%) M-Mode DIMENSIONS Aortic Root2.50 (2.2-3.7cm)Aortic Cusp Exc.1.50 (1.5-2.0cm) Aortic Valve AoV Peak Dubrbvng832.0cm/Merna Peak GR.11mmHg Mitral Valve MV E Fqmhzjks54.7cm/sMV A Ugutkmth42.1cm/sE/A ratio0.7 TDI Lateral E' Peak V8.48cm/sE/Lateral E'8.2E/Medial E'0.0 Pulmonary Valve PV Peak Qqsnseep72.0cm/sPV Peak Grad.1mmHg Tricuspid Valve TR Peak Xbrvkfom678pd/sRAP [id number] Peak Gr.31mmHg [id number] LEFT VENTRICLE The left ventricle is normal size. There is normal left ventricular wall thickness. The left ventricular function is normal.EF-55-60% There is normal LV segmental wall motion. Transmitral Doppler flow pattern is Grade III-reversible restrictive diastolic dysfunction. No left ventricle thrombus noted on this study. There is no ventricular septal defect visualized. There is no left ventricular aneurysm. There is no mass noted in the left ventricle. RIGHT VENTRICLE The right ventricle is normal size. There is normal right ventricular wall thickness. The right ventricular systolic function is normal. ATRIA The left atrium is mildly dilated. The right atrium is mildly dilated. The interatrial septum is intact with no evidence for an atrial septal defect. The atrial septum is aneurysmal. AORTIC VALVE The aortic valve is mildly thickened but opens well. There is trace to mild aortic regurgitation. There is no aortic valvular stenosis. There is no aortic valvular vegetation. MITRAL VALVE The mitral valve is thickened but opens well. Mitral annular calcification is mild. Mitral regurgitation is trace. There is no mitral valve stenosis. There is no evidence of mitral valve prolapse. TRICUSPID VALVE The tricuspid valve leaflets are thickened , but open well. There is mild tricuspid regurgitation.[id number] mmof hg. There is no tricuspid valve stenosis. There is no tricuspid valve prolapse or vegetation. PULMONIC VALVE The pulmonary valve is normal in structure. There is no pulmonic valvular regurgitation. There is no pulmonic valvular stenosis. GREAT VESSELS The aortic root is normal in size. The ascending aorta is normal in size. The pulmonary artery is normal. The IVC is normal in size and collapses >50% with inspiration. PERICARDIAL EFFUSION There is no pleural effusion. There is no pericardial effusion. <Conclusion> The left ventricle is normal size. There is normal left ventricular wall thickness. The left ventricular function is normal.EF-55-60%. Bi atrial enlargement. There is trace to mild aortic regurgitation. Mitral regurgitation is trace. There is mild tricuspid regurgitation.[id number] mmof hg. There is no pericardial effusion.
[2017-09-10] MEDS ORDERED: Sodium Chloride 0.9% 1,000 ML IV SCH (19:00)
--- NOTE | 2017-09-10 19:38 | CARD ---
APPROVED REPORT EKG Measurement Heart [id number] CT [id number] <Conclusion> Normal sinus rhythm Septal infarct, age undetermined Abnormal ECG
[2017-09-11 06:52] LABS: HDL CHOLESTEROL 53 mg/dL (29-60)
[2017-09-11 07:03] LABS: LDL CHOLESTEROL 86 mg/dL (0-129)
--- NOTE | 2017-09-11 07:04 | CP.PCM.PN ---
Subjective - Date & Time of Evaluation Date of Evaluation: 09/11/17 Time of Evaluation: 06:20 - Subjective Subjective: Patient seen and examined. No acute events over night. No complaints. Denies abdominal pain, nausea/vomiting. Objective - Vital Signs/Intake and Output Vital Signs (last 24 hours): Temp Pulse Resp BP Pulse Ox 97.4 F L 60 20 145/87 94 L 09/10/17 07:30 09/10/17 17:24 09/10/17 07:30 09/10/17 17:24 09/10/17 07:30 Intake and Output: 09/11/17 09/11/17 06:59 18:59 Intake Total 1020 Balance 1020 - Medications Medications: Current Medications Acetaminophen (Tylenol 325mg Tab) 650 mg PO Q6H PRN PRN Reason: Pain, moderate (4-7) Last Admin: 09/09/17 20:04 Dose: 650 mg Docusate Sodium (Colace) 100 mg PO BID PRN PRN Reason: Constipation Last Admin: 09/09/17 09:25 Dose: 100 mg Sodium Chloride (Sodium Chloride 0.9%) 1,000 mls @ 60 mls/hr IV .[id number] [facility] Last Admin: 09/11/17 00:53 Dose: 60 mls/hr Metoprolol Tartrate (Lopressor) 12.5 mg PO BID [facility] Last Admin: 09/10/17 17:24 Dose: 12.5 mg Pantoprazole Sodium (Protonix Inj) 40 mg IVP DAILY [facility] Last Admin: 09/10/17 10:25 Dose: 40 mg Senna/Docusate Sodium (Senokot S 50 Mg-8.6 Mg) 1 tab PO BID PRN PRN Reason: Constipation - Labs Labs: 09/10/17 04:00 09/10/17 04:00 - Constitutional Appears: No Acute Distress - Head Exam Head Exam: NORMOCEPHALIC - Eye Exam Eye Exam: EOMI, Normal appearance - ENT Exam ENT Exam: Mucous Membranes Moist - Respiratory Exam Respiratory Exam: NORMAL BREATHING PATTERN - Cardiovascular Exam Cardiovascular Exam: +S1, +S2 - GI/Abdominal Exam GI & Abdominal Exam: Soft. absent: Distended, Guarding, Rigid, Tenderness - Neurological Exam Neurological Exam: Alert, Awake, Oriented x3 - Psychiatric Exam Psychiatric exam: Normal Mood - Skin Skin Exam: Dry, Intact, Warm Assessment and Plan - Assessment and Plan (Free Text) Assessment: 66F w/ abdominal pain, resolved Plan: -At this time there is no indication for surgical intervention -Will f/u pathology and colonoscopy results -Further recs per Dr. Ruy Santoro PGY2
--- NOTE | 2017-09-11 11:15 | CP.PCM.PCO ---
Physician Communication Note - Physician Communication Note Physician Communication Note: pt at stress test during rounds, for colonoscopy , prep& labs ordere
[2017-09-11] MEDS ORDERED: Aminophylline 25 mg/ml Inj ONE (11:32)
[2017-09-11] MEDS ORDERED: Peg-Electrolyte Oral Soln 4L (Golytely) PO ONE (14:00)
--- NOTE | 2017-09-11 14:25 | PN ---
DATE: 09/11/2017 LOCATION: The patient is in room 565, bed 2. REASON FOR CONSULTATION: Chest pain. SUBJECTIVE: The patient denies any chest pain today. Denies shortness of breath or palpitations. The patient's dizziness has also improved. OBJECTIVE: VITAL SIGNS: Blood pressure 150/80, respirations 20, pulse 68, temperature 97.7. HEENT: Head is normocephalic. Eyes: Pupils normal. Conjunctivae normal. Nose and throat normal. NECK: JVP low. Carotid equal. THORAX: AP diameter normal. LUNGS: Clear. CARDIOVASCULAR: S1 and S2. ABDOMEN: Soft, nontender. No organomegaly. Bowel sounds normal. EXTREMITIES: No clubbing. No cyanosis. LABORATORY DATA: WBC 4.8, hemoglobin 12.9, hematocrit 38, platelet 243. Sodium 143, potassium 3.7, BUN 9, creatinine 0.6. TSH 2.04, which is normal. Triglycerides 115, cholesterol 175, HDL 53, LDL 86. Echo was done on 09/10/2017 showed left ventricular size is normal; normal left ventricular wall thickness; left ventricular ejection fraction of 55% to 60%; trace to mild aortic regurgitation; trace mitral regurgitation; mild tricuspid regurgitation with RVSP of 41 mmHg by atrial enlargement. 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 PLAN: We will do nuclear stress test today and in the meantime, continue metoprolol 12.5 mg b.i.d., Protonix 40 mg IV daily, IV fluid. Patient is scheduled for stress test today and he is scheduled for colonoscopy tomorrow. We will follow with you clinically. The patient' s cardiac status is stable. The patient can go for GI procedure with colonoscopy or any other GI procedure needed and we will continue to follow. Rakesh Gonzalez MD
[2017-09-11 18:34] VITALS: O2SAT 99
--- NOTE | 2017-09-11 22:12 | CARD ---
APPROVED REPORT Protocol: LEXISCAN Test Type: Lexiscan Sestamibi Stress Test Attending Physician: Dr. Rakesh Gonzalez Referring Physician: Dr. SHANNEN CHANCE Test Indications: Chest Pain Height:5 ft 0 in Weight:135lbs Medications: TYLENOL, COLACE, LOPRESSOR, PROTONIX, SENNAKOT Medical History: 66 YEAR OLD FEMALE WITH A H/O DIVERTICULITIS, ULCER, GERD, STOMACH CANCER, ARTHRITIS AND HYSTERECTOMY Target HR: 154 bpm Resting ECG: RSR. Resting Heart Rate: 71 bpm Resting Blood Pressure: 130/82mmHg Submaximum (85%): 131 bpm PROCEDURE Pharmacologic stress testing was performed using 0.4mg per 5ml of regadenoson given intravenously over 7-10 seconds. Reversal agent aminophyline 100 mg, given intravenously for Other. POST EXERCISE Reason for Termination: Protocol completed Target HR: No Max HR: 77 bpm 60% of Maximum Predicted HR: 154 bpm Exercise duration: 00:31 min:sec, 0 Stage Exercise capacity: 1.0METs Max Blood Pressure: 130/82mmHg Blood Pressure response to exercise: normal resting BP - appropriate response Heart Rate response to exercise: appropriate Chest Pain: No, none Angina index: 0 Arrhythmia: No, none ST Change: No, none Deviation: 0 mm INTERPRETATION Stress EKG Conclusion: STRESS TEST CHANGED TO IV LEXISCAN NUCLEAR STRESS TEST PATIENT COULD NOT ACHIEVE ADEQUATE HEART RATE ON TREADMIL. IV LEXISCAN NUCLEAR STRESS TEST NEGATIVE FOR CHEST PAIN AND NEGATIVE FOR ST-T CHANGES. NUCLEAR SCAN REPORT PENDING. Signed by Rakesh Gonzalez Electronically Approved: 09/11/2017 12:28:57 EXAM: Myocardial Perfusion REST/STRESS Stress Test Type: Pharmacologic Imaging Protocol Rest Spect myocardial perfusion imaging was performed in supine position 50 minutes following the injection of 10.3 mCi of Tc-99 Myoview. At peak stress, the patient was injected intravenously with 30.4mCi of Tc-99 tetrofosmin after an infusion time of 0 minutes and 10 seconds. Gated Stress Spect was performed 70 minutes after intravenous Tc-99 Myoview injection. The images were gated to evaluate regional wall motion and calculate ventricular ejection fraction.Images were reconstructed using backfilter projection method in short horizontal and verticle long axis. Spect slices were generated. LV Perfusion The quality of the study is good. The left ventricle is normal in size. The right ventricle is unremarkable. The lung uptake is normal. The distribution of tracer reveals a small area of moderately decreased perfusion involving basal inferolateral wall on the stress study. The remainder of the LV myocardium is unremarkable. The rest myocardial perfusion study shows improvement of defect. Wall Motion Wall motion study shows normal contractility of the left ventricle. LVEF = 74%. Conclusion 1. Abnormal SPECT myocardial perfusion study. 2. Reversible, basal inferolateral defect is suggestive of ischemia. 3. Normal gated wall motion of the left ventricle.
[2017-09-12 07:22] LABS: INR 1.13 (0.93-1.08); PARTIAL THROMBOPLASTIN TIME 31.6 Seconds (25.1-36.5)
[2017-09-12 07:50] LABS: BLOOD UREA NITROGEN 7 mg/dL (7-21); CALCIUM 9.2 mg/dL (8.4-10.5); GFR AFRICAN-AMERICAN > 60; GFR NON-AFRICAN AMERICAN > 60
--- NOTE | 2017-09-12 08:21 | CP.PCM.PN ---
Subjective - Date & Time of Evaluation Date of Evaluation: 09/12/17 Time of Evaluation: 08:18 - Subjective Subjective: Surgery Pt seen and examined. Had stress test yesterday. Planned for Colonoscopy today. Denies abd pain, fever, nausea, diarrhea. Objective - Vital Signs/Intake and Output Vital Signs (last 24 hours): Temp Pulse Resp BP Pulse Ox 98 F 67 20 136/40 L 99 09/11/17 14:00 09/11/17 14:00 09/11/17 14:00 09/11/17 16:39 09/11/17 14:00 Intake and Output: 09/12/17 09/12/17 06:59 18:59 Intake Total 920 Balance 920 - Medications Medications: Current Medications Acetaminophen (Tylenol 325mg Tab) 650 mg PO Q6H PRN PRN Reason: Pain, moderate (4-7) Last Admin: 09/12/17 00:01 Dose: 650 mg Docusate Sodium (Colace) 100 mg PO BID PRN PRN Reason: Constipation Last Admin: 09/09/17 09:25 Dose: 100 mg Sodium Chloride (Sodium Chloride 0.9%) 1,000 mls @ 60 mls/hr IV .[id number] [facility] Last Admin: 09/11/17 00:53 Dose: 60 mls/hr Metoprolol Tartrate (Lopressor) 12.5 mg PO BID [facility] Last Admin: 09/11/17 19:00 Dose: Not Given Pantoprazole Sodium (Protonix Inj) 40 mg IVP DAILY [facility] Last Admin: 09/11/17 16:38 Dose: 40 mg Senna/Docusate Sodium (Senokot S 50 Mg-8.6 Mg) 1 tab PO BID PRN PRN Reason: Constipation - Labs Labs: 09/10/17 04:00 09/12/17 06:30 PT 13.0 SECONDS (9.4-12.5) H 09/12/17 06:30 INR 1.13 (0.93-1.08) H 09/12/17 06:30 APTT 31.6 Seconds (25.1-36.5) 09/12/17 06:30 - Constitutional Appears: No Acute Distress - Head Exam Head Exam: ATRAUMATIC, NORMAL INSPECTION, NORMOCEPHALIC - Eye Exam Eye Exam: EOMI, Normal appearance, PERRL Pupil Exam: NORMAL ACCOMODATION, PERRL - ENT Exam ENT Exam: Mucous Membranes Moist, Normal Exam - Neck Exam Neck Exam: Full ROM, Normal Inspection. absent: Lymphadenopathy - Respiratory Exam Respiratory Exam: Clear to Ausculation Bilateral, NORMAL BREATHING PATTERN - Cardiovascular Exam Cardiovascular Exam: REGULAR RHYTHM, +S1, +S2. absent: Murmur - GI/Abdominal Exam GI & Abdominal Exam: Soft, Normal Bowel Sounds. absent: Distended, Tenderness - Extremities Exam Extremities Exam: Full ROM, Normal Capillary Refill, Normal Inspection. absent : Joint Swelling, Pedal Edema - Back Exam Back Exam: NORMAL INSPECTION - Neurological Exam Neurological Exam: Alert, Awake, CN II-XII Intact, Normal Gait, Oriented x3 - Psychiatric Exam Psychiatric exam: Normal Affect, Normal Mood - Skin Skin Exam: Dry, Intact, Normal Color, Warm. absent: Erythema Assessment and Plan - Assessment and Plan (Free Text) Assessment: 66F w/ abdominal pain, resolved Plan: -At this time there is no indication for surgical intervention -Will f/u pathology and colonoscopy results -AMANDEEP Redmond
[2017-09-12 08:25] VITALS: TEMP 98.1
[2017-09-12] MEDS ORDERED: Propofol 10 mg/ml Inj (20 ML) ONE (13:31)
[2017-09-12] MEDS ORDERED: Sodium Chloride 0.9% 1,000 ML IV SCH (14:45)
[2017-09-12 15:40] VITALS: BP 126/64; PULSE 58; RESP 17
--- NOTE | 2017-09-12 15:50 | PN ---
DATE: 09/12/2017 LOCATION: Patient in room 565, bed 2. REASON FOR CONSULTATION: Abdominal pain, chest pain. SUBJECTIVE: The patient lying flat in bed without any chest pain, shortness of breath or palpitations. Patient is scheduled for colonoscopy today because of abdominal pain. PHYSICAL EXAMINATION: VITAL SIGNS: Blood pressure 131/70, respirations 16, pulse 57, temperature 98. HEENT: Head is normocephalic. Eyes: Pupils normal. Conjunctivae normal. Nose and throat normal. NECK: JVP low. Carotids equal. THORAX: AP diameter normal. LUNGS: Clear. CARDIOVASCULAR: S1, S2. ABDOMEN: Soft. No tenderness, no organomegaly. Bowel sounds normal. EXTREMITIES: No clubbing, no cyanosis. LABORATORY DATA: WBC 4.8, hemoglobin 12.9, hematocrit 38, platelet 243. Sodium 143, potassium 3.4, BUN 7, creatinine 0.6. TSH normal. Patient had stress test yesterday which showed reversible basal inferolateral defect suggestive of ischemia, normal LV ejection fraction of 74%. 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 PLAN: Clinically, patient's cardiac status is stable. Patient does not show any anginal symptoms, so she can go for a colonoscopy. Patient is on metoprolol 12.5 mg b.i.d., Protonix 40 daily and after GI workup is completed, we will discuss with patient about cardiac catheterization. At present moment, patient can go for GI procedure including colonoscopy or any other procedures needed. Patient's potassium is low. Already 20 mEq IV potassium has been ordered. Repeat SMA-7 in a.m. We will follow. Rakesh Gonzalez MD
[2017-09-12] MEDS ORDERED: Glycopyrrolate 0.2 mg/ml (2ml vial) ONE (15:54)
[2017-09-12] MEDS ORDERED: Neostigmine Methylsulfate 3mg/3ml Syringe IV ONE (16:07)
--- NOTE | 2017-09-12 19:19 | DS ---
DISCHARGE DIAGNOSES: 1. Rectal bleed. 2. Gastric carcinoid resected. 3. Anemia. 4. Chest pain. HOSPITAL COURSE:: Patient was admitted with history of rectal bleed for past few weeks. She underwent GI consultation with Dr. Lynn. EGD did not show any lesion in the stomach. She also had endoscopic ultrasound, EUS, which did not show any abnormal lesions. She underwent colonoscopy today. There was diverticulosis and small mucosal rectal prolapse. There were no bleeding sources were found. She is being discharged home in stable condition. PHYSICAL EXAMINATION ON DISCHARGE: GENERAL: Comfortable in bed, in no acute distress. VITAL SIGNS: Temperature 98.7, heart rate 80 per minute, blood pressure 120/70, respiratory rate 18 per minute, oxygen saturation 98% on room air. HEENT: Normal. Chest: Air entry present and equal bilaterally. No added sounds. CARDIOVASCULAR: S1, S2 normal. No murmur. No gallop. ABDOMEN: Soft, nontender. No hepatosplenomegaly. EXTREMITIES: No edema. SKIN: No petechiae. No rash. CENTRAL NERVOUS SYSTEM: Alert, oriented x3. No focal sensory or motor deficit. CONDITION ON DISCHARGE Stable. DISPOSITION: Discharged home. DISCHARGE MEDICATIONS: Protonix 40 mg daily. FOLLOWUP: With in [address] Lynn in 1 week. DIET: Regular diet. Time spent in preparing discharge, coordinating care, 60 minutes. Kae Galvan MD
--- NOTE | 2017-09-12 20:38 | PN ---
DATE: 09/11/2017 SUBJECTIVE: She is comfortable in bed, in no acute distress. She underwent cardiac stress test today which was negative. Denies any chest pain now. No nausea, no vomiting, no rectal bleeding during hospitalization, no abdominal pain. She is currently on clear liquids in preparation for colonoscopy tomorrow. She is able to drink the prep solution without any discomfort. REVIEW OF SYSTEMS: As per HPI, rest of 12-point of review of systems reviewed and negative. PHYSICAL EXAMINATION: GENERAL: Comfortable, in bed, in no acute distress. VITAL SIGNS: Temperature 98.7, heart rate 80 per minute, blood pressure 130/70. HEENT: Pallor positive. NECK: No lymphadenopathy. CHEST: Air entry present equal bilaterally. No added sound. CARDIOVASCULAR: S1, S2 normal. No murmur, no gallop. ABDOMEN: Soft, nontender. No hepatosplenomegaly. EXTREMITIES: No edema. CENTRAL NERVOUS SYSTEMS: Alert, oriented x 3. No focal sensory or motor deficits. SKIN: No rash, no petechiae. MEDICATIONS: Metoprolol 12.5 mg p.o. b.i.d., Protonix 40 mg IV daily, senna, Colace, IV fluids at 70 mL an hour. LABORATORY DATA: White count 4.8, hemoglobin 12.9, hematocrit 38, platelet count 243. Sodium 143, potassium 3.4, creatinine 0.6. ASSESSMENT: 1. Rectal bleed. 2. Carcinoid gastric, status post resection. 3. Anemia. 4. Chest pain, noncardiac. PLAN: She underwent cardiac stress test, was evaluated by Cardiology, Dr. Gonzalez. Stress test was negative. She will be for colonoscopy tomorrow, able to drink the colonic prep. No bleeding witnessed during hospitalization. Daughter at bedside. I had a lengthy discussion with the daughter regarding the followup of carcinoid. She has not seen any doctor or neither had any imaging scan for followup on carcinoid which was resected in 2016 in [place]. Daughter demonstrated understanding the discussion well. She has translated the same to Ms. Mcdaniels. Renal function within normal limits. Liver within normal limits. No chest pain. Cardiac enzymes were negative. Continue beta-mariel and aspirin 81 mg daily. IV fluids at 100 mL an hour as she will be n.p.o. till tomorrow until colonoscopy is done. Kae MD [facility] # [id number]
== END 2017-09-12 17:49 | disposition home or self-care (01) | DRG 389 ==
LOC: ED 01:23 → ERH 05:41 → 5RNO 07:42 → OBSVTOIN 09-09 20:46
PROVIDERS: ADMIT Internal Medicine Medical Oncology; ATTEND Internal Medicine Medical Oncology
PROC: 0DB68ZX Excision of Stomach, Via Natural or Artificial Opening Endoscopic, Diagnostic (ICD-10-PCS; principal; 2017-09-08 13:30)
PROC: 0DJ08ZZ Inspection of Upper Intestinal Tract, Via Natural or Artificial Opening Endoscopic (ICD-10-PCS; 2017-09-09)
PROC: BF47ZZZ Ultrasonography of Pancreas (ICD-10-PCS; 2017-09-09)
PROC: 0DJD8ZZ Inspection of Lower Intestinal Tract, Via Natural or Artificial Opening Endoscopic (ICD-10-PCS; 2017-09-12)
DX: K56.609 Unspecified intestinal obstruction, unspecified as to partial versus complete obstruction (principal); N39.0 Urinary tract infection, site not specified; K21.9 Gastro-esophageal reflux disease without esophagitis; K29.50 Unspecified chronic gastritis without bleeding; K57.30 Diverticulosis of large intestine without perforation or abscess without bleeding; K62.3 Rectal prolapse; D64.9 Anemia, unspecified; K29.80 Duodenitis without bleeding; K64.8 Other hemorrhoids; R07.89 Other chest pain; M19.90 Unspecified osteoarthritis, unspecified site; Z85.020 Personal history of malignant carcinoid tumor of stomach; Z87.11 Personal history of peptic ulcer disease

== ENCOUNTER 2018-10-29 17:24 | Emergency (ER) | payer MEDICARE, OTHER ==
[2018-10-29 17:30] VITALS: TEMP 98.2; BMI 26.2
[2018-10-29] MEDS ORDERED: Lidocaine 5% Patch TD STA (18:14)
[2018-10-29 19:26] LABS: BASO # 0.04 K/mm3 (0.0-2.0); BASO % 0.7 % (0.0-3.0); EOS # 0.2 (0.0-0.7); EOS % 3.6 % (1.5-5.0); HEMOGLOBIN 13.4 g/dL (12.0-16.0); LYMPH # 2.5 (1.2-3.4); LYMPH % 43.9 % (22.0-35.0); MEAN CELL VOLUME 90.5 fl (80.0-105.0); MEAN CORPUSCULAR HEMOGLOBIN 29.6 pg (25.0-35.0); MEAN CORPUSCULAR HGB CONC 32.7 g/dl (31.0-37.0); MEAN PLATELET VOLUME 9.7 fl (7.0-11.0); MONO # 0.5 (0.1-0.6); MONO % 8.7 % (1.0-6.0); RBC 4.53 10^6/uL (3.5-6.1); RED CELL DISTRIBUTION WIDTH 14.3 % (11.5-14.5); WHITE BLOOD COUNT 5.8 10^3/uL (4.5-11.0)
--- NOTE | 2018-10-29 19:37 | ED PDOC ---
Arrival/HPI - General Chief Complaint: Back Pain Time Seen by Provider: 10/29/18 18:02 Historian: Patient - History of Present Illness Narrative History of Present Illness (Text): 21:14 67 y/o female with PMH of arthritis, GERD, Peptic ulcers, Diverticulitis presents to the ED c/o left lower back pain x 3 days. Pain is sharp and radiates into left leg. She has never experienced pain like this in the past. Associated dysuria and left sided abdominal pain. Denies fever, chills, saddle anesthesia, incontinence, numbness, weakness, paresthesias, vaginal bleeding/odor/discharge, SOB, chest pain, nausea, vomiting, diarrhea, constipation, or any other associated symptoms. Past Medical History - Provider Review Nursing Documentation Reviewed: Yes - Infectious Disease Hx of Infectious Diseases: None - Reproductive Menopause: Yes - Cardiac Hx Cardiac Disorders: No - Pulmonary Hx Respiratory Disorders: No - Neurological Hx Neurological Disorder: No - HEENT Other/Comment: Surgery to both eyes uncertain of proceedure - Renal Hx Renal Disorder: No - Endocrine/Metabolic Hx Endocrine Disorders: No - Hematological/Oncological Hx Blood Transfusions: (UNKNOWN) Hx Blood Transfusion Reaction: (UNKNOWN) - Integumentary Hx Dermatological Disorder: No - Musculoskeletal/Rheumatological Hx Arthritis: Yes - Gastrointestinal Hx Gastrointestinal Ulcer: Yes Other/Comment: Bleding from rectum notice prior to admission - Genitourinary/Gynecological Hx Genitourinary Disorders: Yes Hx Urinary Tract Infection: Yes Other/Comment: KILO/BSO,C SECTION, - Psychiatric Hx Psychophysiologic Disorder: No Hx Depression: No Hx Emotional Abuse: No Hx Physical Abuse: No Hx Substance Use: No - Surgical History Hx Orthopedic Surgery: Yes (rt hip) - Anesthesia Hx Anesthesia Reactions: No Hx Malignant Hyperthermia: No - Suicidal Assessment Feels Threatened In Home Enviroment: No Family/Social History - Physician Review Nursing Documentation Reviewed: Yes Family/Social History: No Known Family HX Smoking Status: Never Smoked Hx Alcohol Use: No Hx Substance Use: No Allergies/Home Meds Allergies/Adverse Reactions: Allergies No Known Allergies Allergy (Verified 09/08/17 02:15) Review of Systems - Review of Systems Constitutional: Normal. absent: Fevers Eyes: Normal. absent: Vision Changes, Eye Pain ENT: Normal. absent: Sore Throat, Sinus Congestion Respiratory: Normal. absent: SOB, Cough Cardiovascular: Normal. absent: Chest Pain, Palpitations, Syncope Gastrointestinal: Abdominal Pain. absent: Constipation, Diarrhea, Nausea, Vomiting, Appetite Changes Genitourinary Female: Dysuria Musculoskeletal: Back Pain, Other (left leg pain). absent: Neck Pain Skin: Normal. absent: Rash Neurological: Normal. absent: Headache, Dizziness Physical Exam Vital Signs Reviewed: Yes Vital Signs Temp Pulse Resp BP Pulse Ox 10/29/18 17:29 98.2 F 88 18 134/75 98 Temperature: Afebrile Blood Pressure: Normal Pulse: Regular Respiratory Rate: Normal Appearance: Positive for: Well-Appearing, Non-Toxic, Comfortable Pain Distress: None Mental Status: Positive for: Alert and Oriented X 3 - Systems Exam Head: Present: Atraumatic, Normocephalic Pupils: Present: PERRL Extroacular Muscles: Present: EOMI Conjunctiva: Present: Normal Mouth: Present: Moist Mucous Membranes Neck: Present: Normal Range of Motion Respiratory/Chest: Present: Clear to Auscultation, Good Air Exchange. No: Respiratory Distress, Accessory Muscle Use Cardiovascular: Present: Regular Rate and Rhythm, Normal S1, S2, Peripheal Pulses Present Abdomen: Present: Tenderness (LLQ), Normal Bowel Sounds. No: Distention, Perito vish Signs Back: Present: Normal Inspection, Paraspinal Tenderness (left lumbar), Pain with Leg Raise (left). No: CVA Tenderness Upper Extremity: Present: Normal Inspection, Normal ROM, NORMAL PULSES, Neurovascularly Intact, Capillary Refill < 2s. No: Cyanosis, Edema, Temperature Abnormalties Lower Extremity: Present: Normal Inspection, NORMAL PULSES, Normal ROM, Neurovascularly Intact, Capillary Refill < 2 s. No: Edema, Temperature Abnormalties Neurological: Present: GCS=15, CN II-XII Intact, Speech Normal, Motor Func Grossly Intact, Normal Sensory Function, Gait Normal Skin: Present: Warm, Dry, Normal Color. No: Rashes Psychiatric: Present: Alert, Oriented x 3, Normal Insight, Normal Concentration, Normal Affect Medical Decision Making ED Course and Treatment: Initial Plan: * Labs * UA * Venous Duplex * Lumbar Spine CT * Toradol, Lidoderm Patch Venous duplex prelim read negative CT shows enteritis, diverticulosis, spondylolisthesis. Findings discussed with ED attending, recommends outpatient followup. Bloodwork reviewed, unremarkable. No leukocytosis, anemia, or electrolyte abnormalities. Pt afebrile. Patient reports resolution of pain with medication. Advised orthopedic and PMD followup. Pt verbalized understanding. Encounter translated by son with patients consent. Diagnostic testing results and plan of care discussed with patient. Strict instructions given regarding prescription use, importance of followup, and signs/symptoms to return to ER including or any other new/worsening symptoms. Pt verbalized understanding of discussion. Patient is A&Ox3, ambulating with steady gait, with vital signs stable for discharge. - Lab Interpretations Lab Results: 10/29/18 19:19 10/29/18 19:19 Lab Results 10/29/18 20:57: Urine Color Yellow, Urine Appearance Clear, Urine pH 7.5, Ur Specific Melcroft 1.010, Urine Protein Negative, Urine Glucose (UA) Negative, Urine Ketones Negative, Urine Blood Negative, Urine Nitrate Negative, Urine Bilirubin Negative, Urine Urobilinogen 0.2, Ur Leukocyte Esterase Negative 10/29/18 19:19: PT 11.9, INR 1.07, APTT 33.9 10/29/18 19:19: Sodium 142, Potassium 4.6, Chloride 104, Carbon Dioxide 30, Anion Gap 12, BUN 17, Creatinine 0.6 L, Est GFR ( Amer) > 60, Est GFR (Non-Af Amer) > 60, Random Glucose 97, Calcium 9.4, Total Bilirubin 0.3, AST 28, ALT 25, Alkaline Phosphatase 76, Total Protein 7.6, Albumin 4.2, Globulin 3.3, Albumin/Globulin Ratio 1.3, Lipase 47 10/29/18 19:19: WBC 5.8, RBC 4.53, Hgb 13.4, Hct 41.0, MCV 90.5 D, MCH 29.6, MCHC 32.7, RDW 14.3, Plt Count 297, MPV 9.7, Neut % (Auto) 43.1 L, Lymph % (Auto) 43.9 H, Fisher % (Auto) 8.7 H, Eos % (Auto) 3.6, Baso % (Auto) 0.7, Lymph # (Auto) 2.5, Fisher # (Auto) 0.5, Eos # (Auto) 0.2, Baso # (Auto) 0.04, Absolute Neuts (auto) 2.49 I have reviewed the lab results: Yes - RAD Interpretation Narrative RAD Interpretations (Text): 10/29/18 20:24 Left Lower Extremity Ultrasound: FINDINGS: The visualized deep venous system of the left lower extremity is sonographically normal and compressible. Normal wave forms and augmentation are seen. There is no sonographic evidence for deep venous thrombosis in the visualized segments of the left lower extremity. IMPRESSION: 1. No sonographic evidence for deep venous thrombosis in the visualized segments of the left lower extremity. 10/29/18 21:23 CT Abdomen and Pelvis with IV contrast CLINICAL HISTORY: LLQ ABDOMINAL PAIN TECHNIQUE: Axial computed tomography images of the abdomen and pelvis with intravenous contrast. 387.55 mGy-cm CONTRAST: With; OMNI 350 100 ml COMPARISON: Comparison is made with prior CT abdomen and pelvis examination dated 09/08/2017. FINDINGS: LUNG BASES: The lung bases appear clear. No pleural effusions are seen. LIVER: There is mild hepatomegaly. The liver measures 16.6 cm in the midclavicular line. GALLBLADDER AND BILE DUCTS: The gallbladder is partially contracted. No radioopaque gallstones are seen. No biliary ductal dilatation is evident. PANCREAS: Unremarkable. SPLEEN: Unremarkable. ADRENAL GLANDS: Unremarkable. KIDNEYS, URETERS, AND BLADDER: The kidneys appear within normal limits. There is no hydronephrosis or hydrou reter. No urinary calculi are seen. The urinary bladder appeared normal in size and configuration. STOMACH AND BOWEL: Unremarkable appearance of the stomach. No evidence of bowel obstruction. There is mucosal wall thickening of the duodenum and entire small intestinal tract with fluid noted throughout the lumen compatible with severe diffuse enteritis. Infectious or inflammatory etiologies are thought most likely. There is diverticulosis coli seen in the left hemicolon with no evidence of acute diverticulitis. No evidence suggesting colitis. APPENDIX: No evidence of acute appendicitis on CT examination. PERITONEUM: No free fluid. No free air. LYMPH NODES: No lymphadenopathy is evident. REPRODUCTIVE: Status post hysterectomy. VASCULATURE: No evidence of abdominal aortic aneurysm. Minor atherosclerotic vascular plaquing is present. BONES: No aggressive appearing osseous lesion. No acute osseous pathology evident. Streak artifact arises from a total right hip prosthesis. There is grade 1 anterior spondylolisthesis of L4 on L5 noted. IMPRESSION: 1. Evidence of severe diffuse enteritis. 2. Mild hepatomegaly. 3. Diverticulosis coli in the left hemicolon without evidence of acute diverticulitis. 4. Grade 1 anterior spondylolisthesis of L4 on L5. 5. Status post hysterectomy. Radiology Orders: 10/29/18 18:10 ABD & PELVIS IV CONTRAST ONLY [CT] Stat DUPLEX LOWER EXTRM VEIN LEFT [US] Stat Range Rider: Radiologist - Medication Orders Current Medication Orders: Discontinued Medications Ketorolac Tromethamine (Toradol) 15 mg IVP STAT STA Stop: 10/29/18 18:15 Last Admin: 10/29/18 18:57 Dose: 15 mg MAR Pain Assessment Document 10/29/18 18:57 DAGMAR (Rec: 10/29/18 18:58 DAGMAR [facility] [place] Pain Reassessment Is this a pain reassessment? Yes Presence of Pain Presence of Pain Yes Pain Scale Used Protocol: PSCALES Pain Scale Used Numeric Location Left, Right or Bilateral Left Upper or Lower Lower Pain Location Body Site Back Description Description Sharp Intensity of Pain at present 7 IVP Administration Document 10/29/18 18:57 DAGMAR (Rec: 10/29/18 18:58 DAGMAR [facility] [place]) Charges for Administration # of IVP Administrations 1 Lidocaine (Lidoderm) 1 ea TD STAT STA Stop: 10/29/18 18:15 Last Admin: 10/29/18 18:57 Dose: 1 ea MAR Transdermal Patch Site Document 10/29/18 18:57 DAGMAR (Rec: 10/29/18 18:57 DAGMAR [facility] [place]) Transdermal Patch Site Transdermal Patch Site Left Lower Back Disposition/Present on Arrival - Present on Arrival Any Indicators Present on Arrival: No History of DVT/PE: No History of Uncontrolled Diabetes: No Urinary Catheter: No History of Decub. Ulcer: No History Surgical Site Infection Following: None - Disposition Have Diagnosis and Disposition been Completed?: Yes Diagnosis: Low back pain with sciatica, Enteritis Disposition: HOME/ ROUTINE Disposition Time: 21:20 Patient Plan: Discharge Condition: IMPROVED Discharge Instructions (ExitCare): Low Back Pain in Adults, Viral Gastroenteritis, Adult (DC), Sciatica Exercises Print Language: SERBIAN Additional Instructions: Ibuprofeno cada 8 horas segn sea necesario, gama con alimentos Lidoderm parche diariamente, 12 horas en 12 horas de descanso Aumentar los lquidos, dieta blanda. Seguimiento con mdico primario en 2 bailey. Seguimiento con mdico ortopdico dentro de 2 bailey. Regrese a la rickie de emergencias con cualquier sntoma nuevo o que empeore. Prescriptions: Ibuprofen [Motrin Tab] 600 mg PO Q8 PRN #20 tab PRN Reason: pain Lidocaine 5% [Lidoderm] 1 ea TD DAILY PRN #30 patch PRN Reason: Pain, Mild (1-3) Referrals: Jennifer Mcmahan MD [Staff Provider] - Follow up with primary Amparo Giles DO [Primary Care Provider] - Follow up with primary Forms: [employer] (Swazi), WORK NOTE
[2018-10-29 19:39] LABS: ALB/GLOB RATIO 1.3 (1.1-1.8); ALBUMIN 4.2 g/dL (3.0-4.8); ALT/SGPT 25 U/L (7-56); AST/SGOT 28 U/L (14-36); BLOOD UREA NITROGEN 17 mg/dL (7-21); CALCIUM 9.4 mg/dL (8.4-10.5); GFR NON-AFRICAN AMERICAN > 60; LIPASE 47 U/L (23-300)
[2018-10-29 19:41] LABS: INR 1.07; PARTIAL THROMBOPLASTIN TIME 33.9 Seconds (26.9-38.3); PROTHROMBIN TIME 11.9 SECONDS (9.4-12.5)
[2018-10-29] MEDS ORDERED: Iohexol 350 MG/100 ML VIAL ONE (19:53)
--- NOTE | 2018-10-29 19:53 | US ---
PROCEDURE: Left lower extremity venous US HISTORY: Leg pain and swelling. Evaluate for DVT. PHYSICIAN(S): Karthikeyan Lewis MD. TECHNIQUE: Duplex sonography and color-flow Doppler with graded compression were used to evaluate the deep venous system of the left lower extremity. FINDINGS: The visualized deep venous system of the left lower extremity is sonographically normal and compressible. Normal wave forms and augmentation are seen. There is no sonographic evidence for deep venous thrombosis in the visualized segments of the left lower extremity. IMPRESSION: 1. No sonographic evidence for deep venous thrombosis in the visualized segments of the left lower extremity.
[2018-10-29 21:00] VITALS: BP 157/78; PULSE 63; RESP 16; O2SAT 96
[2018-10-29 21:03] LABS: PH,URINE 7.5 (4.7-8.0); URINE BILIRUBIN NEGATIVE (NEGATIVE); URINE BLOOD NEGATIVE (NEGATIVE); URINE GLUCOSE (UA) NEGATIVE (NEGATIVE); URINE LEUKOCYTE ESTERASE NEGATIVE Leu/uL (NEGATIVE); URINE PROTEIN NEGATIVE mg/dL (<30 mg/dL); URINE UROBILINOGEN 0.2 E.U./dL (<1 E.U./dL)
[2018-10-29 21:04] LABS: URINE APPEARANCE CLEAR (CLEAR); URINE COLOR YELLOW (YELLOW)
--- NOTE | 2018-10-30 13:05 | CT ---
Date of service: 10/29/2018 PROCEDURE: CT Abdomen and Pelvis with contrast HISTORY: LLQ abdominal pain COMPARISON: CT abdomen and pelvis with IV contrast performed 09/08/17 TECHNIQUE: Contrast dose: 100 mL Omnipaque 350 IV Radiation dose: Total exam DLP = 387.55 mGy-cm. This CT exam was performed using one or more of the following dose reduction techniques: Automated exposure control, adjustment of the mA and/or kV according to patient size, and/or use of iterative reconstruction technique. FINDINGS: LOWER THORAX: Mild bibasilar atelectasis. No visible pleural effusion or pneumothorax. LIVER: Hypoattenuation of the liver compatible with hepatic steatosis. GALLBLADDER AND BILE DUCTS: Contracted gallbladder appears otherwise grossly unremarkable. PANCREAS: Unremarkable. SPLEEN: Unremarkable. ADRENALS: Unremarkable. KIDNEYS AND URETERS: The kidneys enhance symmetrically. No hydronephrosis or obstructing calculus identified. VASCULATURE: No aortic aneurysm. No atherosclerotic calcification or mural plaque present. BOWEL: Mid to distal gastric wall thickening may be exaggerated by under distension, however alternatives including gastritis may be considered in the proper clinical setting. Lack of oral contrast limits evaluation for bowel pathology. Bowel loops appear within normal limits of caliber without evidence of obstruction. Nondilated fluid-filled small bowel loops. Several small bowel loops appears thick walled. Correlate clinically for enteritis. Moderate diffuse constipation. Diverticulosis without CT evidence of acute diverticulitis. APPENDIX: The appendix appears within normal limits of caliber. No secondary signs of acute appendicitis. PERITONEUM: No significant free fluid. No definite free air. LYMPH NODES: No bulky adenopathy identified. BLADDER: Evaluation obscured by streak artifact. REPRODUCTIVE: Uterus is absent consistent with hysterectomy. BONES: Streak artifact from right hip arthroplasty. Degenerative changes of the spine. 8 mm anterolisthesis of L4 on L5. OTHER FINDINGS: None. IMPRESSION: Hepatic steatosis. Mid to distal gastric wall thickening may be exaggerated by under distension, however alternatives including gastritis may be considered in the proper clinical setting. Fluid-filled nondilated small bowel loops. Several small bowel loops appears thick walled. Correlate clinically for possibility of enteritis. Moderate constipation. Diverticulosis without CT evidence of acute diverticulitis. Hysterectomy. Degenerative changes. 8 mm anterolisthesis of L4 on L5. Streak artifact due to right hip arthroplasty limits evaluation of the pelvis. Additional incidental findings as above. Preliminary impression was provided by [employer]. Study marked for PA review.
== END 2018-10-29 22:00 | disposition home or self-care (01) ==
LOC: ED 17:24
DX: K52.9 Noninfective gastroenteritis and colitis, unspecified (principal); M54.40 Lumbago with sciatica, unspecified side; M19.90 Unspecified osteoarthritis, unspecified site
CPT/HCPCS: 74177; 80053; 81003; 83690; 85025; 85610; 85730; 93971; 96374; 99283; J1885; Q9967